=== PATIENT | male | born 2000 | race African-American/Black ===

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

== ENCOUNTER 2022-05-06 13:27 | Emergency (ER) | payer MEDICAID ==
[~2022-05-06] VITALS: Ht 182.9 cm; Wt 77.3 kg
[~2022-05-06 13:27] MED LIST: NAPROXEN 3375 MG/TAB PO
[2022-05-06 13:48] VITALS: BP 117/69; PULSE 92; TEMP 98.3
[2022-05-06] MEDS ORDERED: ILOTYCIN5 MG/GM OP (14:19)
== END 2022-05-06 14:39 | disposition home or self-care (01) ==
LOC: COL.ER 13:27
DX: H10.9 Unspecified conjunctivitis (principal); Z28.310 Unvaccinated for COVID-19